=== PATIENT | female | born 1970 ===

== ENCOUNTER 2023-08-13 08:15 | Inpatient (IN) | payer OTHER ==
[~2023-08-13] VITALS: Ht 165.1 cm; Wt 77.1 kg
[2023-08-13 11:15] LABS: URINE APPEARANCE Clear; URINE BILIRRUBIN Negative (NEGATIVE); URINE BLOOD Small; URINE COLOR Yellow; URINE GLUCOSE Negative (NEGATIVE); URINE LEUKOCYTE Trace; URINE NITRATE Negative; URINE PROTEIN Negative (NEGATIVE); URINE UROBILINOGEN 0.2 E.U./dl
[2023-08-13 11:17] LABS: URINE BACTERIA 181.4 uL (0.0-1933); URINE EPITHELIAL CELLS 23.6 uL (0.0-38.8); URINE RBC 5.1 uL (0.0-20.8); URINE WBC 2.4 uL (0.0-23.2)
[2023-08-13 11:21] LABS: HEMATOCRIT 38.8 % (36.0-45.00); HEMOGLOBIN 13.2 g/dL (12.0-15.00); MEAN CELL VOLUME 87.7 fL (80.00-100.00); MEAN CORPUSCULAR HEMOGLOBIN 29.8 pg (27.00-32.0); PLATELET COUNT 429 K/uL (150-450); RED BLOOD COUNT 4.43 M/uL (4.00-6.00)
[2023-08-13 11:37] LABS: INR 0.96; PARTIAL THROMBOPLASTIN TIME 29.1 SECONDS (22.0-34.0); PROTHROMBIN TIME 10.1 SECONDS (9.0-11.5)
[2023-08-13 11:42] LABS: ALBUMIN 3.4 gm/dL (3.4-5.0); BILIRUBIN TOTAL 0.27 mg/dL (0.3-1.2); CALCIUM 9.6 mg/dL (8.5-10.1); CREATININE SERUM 0.83 mg/dL (0.55-1.02); GFR 72.47; GLOBULINA 4.1 G/DL (2.4-3.5); POTASSIUM 4.69 mEq/L (3.5-5.1); TOTAL PROTEIN 7.5 gm/dL (6.4-8.2)
[2023-08-20] MEDS ORDERED: METFORMIN HCL500 M1 (07:58)
[2023-08-20] MEDS ORDERED: VITAMIN D31250 MCG (07:58)
[2023-08-20] MEDS ORDERED: TELMISARTAN-HC1 EACH (07:59)
[2023-08-20] MEDS ORDERED: PHENTERMINE H37.5 M1 (07:59)
== END 2023-08-22 12:44 | disposition home or self-care (01) | DRG 743 ==
LOC: O/R 08-20 05:32 → OB/GYN 08-20 07:00
PROVIDERS: ADMIT Obstetrics & Gynecology; ATTEND Obstetrics & Gynecology
PROC: 0UT70ZZ Resection of Bilateral Fallopian Tubes, Open Approach (ICD-10-PCS; 2023-08-20)
PROC: 0DNW0ZZ Release Peritoneum, Open Approach (ICD-10-PCS; 2023-08-20)
PROC: 0DN80ZZ Release Small Intestine, Open Approach (ICD-10-PCS; 2023-08-20)
PROC: 0UT90ZZ Resection of Uterus, Open Approach (ICD-10-PCS; principal; 2023-08-20 07:00)
DX: D25.1 Intramural leiomyoma of uterus (principal); D25.2 Subserosal leiomyoma of uterus; D25.0 Submucous leiomyoma of uterus; N84.0 Polyp of corpus uteri; N84.1 Polyp of cervix uteri; Z20.822 Contact with and (suspected) exposure to COVID-19; N73.6 Female pelvic peritoneal adhesions (postinfective)